=== PATIENT | male | born 1955 | race Hispanic/Latino ===

== ENCOUNTER 2016-11-10 06:35 | Day surgery (SDC) | payer OTHER ==
--- NOTE | 2016-11-10 07:21 | Anesthesia Day of Surgery ---
Anesthesia Day of Surgery - Day of Surgery Patient Examined: Yes Patient H&P Reviewed: Yes Patient is NPO: Yes Beta Blockers: Yes
--- NOTE | 2016-11-10 07:23 | Anesthesia Consultation ---
Anesthesia Consult and Med Hx Date of service: 11/10/16 - Airway Anesthetic Teeth Evaluation: Good ROM Head & Neck: Adequate Mental/Hyoid Distance: Adequate Mallampati Class: Class I Intubation Access Assessment: Good - Pulmonary Exam CTA: Yes - Cardiac Exam Cardiac Exam: RRR - Pre-Operative Health Status ASA Pre-Surgery Classification: ASA3 Proposed Anesthetic Plan: MAC - Pulmonary Hx Smoking: Yes (smoked today) Hx Asthma: No COPD: No Hx Pneumonia: No - Cardiovascular System Hx Hypertension: Yes (took coreg yesterday and lisinipril this morning) Hx Coronary Artery Disease: Yes (CABG 2011) Hx Heart Attack/AMI: Yes - Central Nervous System CVA: Yes (stroke X1 week ago) Hx Psychiatric Problems: No - Endocrine Hx End Stage Renal Disease: No - Other Systems Hx Obesity: Yes
[2016-11-10] MEDS ORDERED: DIPRIVAN 10 MG/ML IV ONE ×2 (07:50)
[2016-11-10] MEDS ORDERED: WATER FOR IRRIG STERILE IR ONE (07:51)
[2016-11-10] MEDS ORDERED: WATER FOR IRRIG STERILE ONE (07:51)
[2016-11-10] MEDS ORDERED: AMIDATE IV ONE (07:57)
[2016-11-10] MEDS ORDERED: NACL 0.9% 1000 ML 1,000 ML IV SCH (08:00)
[2016-11-10] MEDS ORDERED: XYLOCAINE MPF 2% ONE (08:00)
--- NOTE | 2016-11-10 08:28 | Post Anesthesia Evaluation ---
- Post Anesthesia Evaluation Patient Participated: Yes Airway Patent: Yes Stable Respiratory Function: Yes Nausea/Vomiting: No Temp > 96.8F: Yes Pain Manageable: Yes Adequeate Hydration: Yes Anesthesia Complications: No Block Receding Appropriately: Not Applicable Patient on Ventilator: No
--- NOTE | 2016-11-10 08:36 | Short Stay Summary ---
Short Stay Documentation - Allergies and Medications Current Medications: Allergies No Known Allergies Allergy (Verified 07/13/14 00:45) Home Medications Medication Instructions Recorded Confirmed Last Taken Type Aspirin [Aspirin BABY CHEW TAB] 81 mg PO DAILY 07/13/14 07/19/14 11/09/16 History Atorvastatin [Lipitor] 40 mg PO QHS 07/13/14 07/19/14 11/09/16 History Carvedilol [Coreg] 12.5 mg PO BID 07/13/14 07/19/14 11/09/16 History Lisinopril [Zestril TAB] 5 mg PO DAILY 07/13/14 07/19/14 11/10/16 05:30 History Niacin ER [Niaspan ER] 500 mg PO BID 07/13/14 07/19/14 10/27/16 History Warfarin [Coumadin] 7.5 mg PO DAILY@1700 #10 tablet 07/18/14 07/19/14 11/07/16 Rx Active Medications Sodium Chloride (Nacl 0.9% 1000 Ml) 1,000 mls @ 50 mls/hr IV DIRECT ARELY Last Admin: 11/10/16 07:40 Dose: 50 mls/hr - Brief post op/procedure progress note Date of procedure: 11/10/16 Pre-op diagnosis: Colon cancer screening Post-op diagnosis: same (1. Colon polyp 2. Anal papiilae 3. Diverticulosis 3. Internal hemorrhoids) Procedure: Colonoscopy with snare polypectomy Anesthesia: MAC Findings: as above Surgeon: EUGENIO MAY Estimated blood loss: none Pathology: list (Cecal polyp) Condition: stable - Disposition Condition at discharge: Stable Disposition: DC-[id number] TO HOME OR SELFCARE Short Stay Discharge Plan Activity: no restrictions Weight Bearing Status: Full Weight Bearing Diet: regular, low salt
[2016-11-10 08:57] VITALS: BP 132/78
[2016-11-10] MEDS ORDERED: NACL 0.9% 1000 ML 1,000 ML ONE (10:07)
== END 2016-11-10 09:07 | disposition home or self-care (01) ==
LOC: GIO 06:35
PROVIDERS: ATTEND Internal Medicine Gastroenterology
DX: Z12.11 Encounter for screening for malignant neoplasm of colon (principal); D12.0 Benign neoplasm of cecum; K64.8 Other hemorrhoids; K62.89 Other specified diseases of anus and rectum; K57.30 Diverticulosis of large intestine without perforation or abscess without bleeding; M19.90 Unspecified osteoarthritis, unspecified site; I10 Essential (primary) hypertension; I25.10 Atherosclerotic heart disease of native coronary artery without angina pectoris; F17.210 Nicotine dependence, cigarettes, uncomplicated; E66.9 Obesity, unspecified; Z68.35 Body mass index [BMI] 35.0-35.9, adult; Z72.89 Other problems related to lifestyle; Z79.82 Long term (current) use of aspirin; Z79.899 Other long term (current) drug therapy; Z88.5 Allergy status to narcotic agent; Z86.73 Personal history of transient ischemic attack (TIA), and cerebral infarction without residual deficits; Z95.1 Presence of aortocoronary bypass graft; Z98.890 Other specified postprocedural states
CPT/HCPCS: 45385; 88305; J2704; J7030

== ENCOUNTER 2017-08-29 12:58 | Outpatient (CLI) | payer OTHER ==
--- NOTE | 2017-08-29 15:17 | XRay Report ---
ROUTINE CHEST, TWO VIEWS: HISTORY: COPD with acute exacerbation. There is mild hyperinflation. There is an ill-defined 4 cm opacity in the right midlung. I cannot exclude a mass. Further evaluation with CT chest with contrast is recommended. The remainder of the lungs are clear. No pleural effusion or pneumothorax. Normal heart size and pulmonary vascularity. Previous CABG changes are noted. IMPRESSION: Mild COPD. Right lung opacity as described. A mass cannot be excluded. Further evaluation with CT chest with contrast is recommended.
== END 2017-08-29 12:59 | disposition home or self-care (01) ==
LOC: XRAY 12:58
PROVIDERS: ATTEND Internal Medicine
DX: J44.1 Chronic obstructive pulmonary disease with (acute) exacerbation (principal); J98.11 Atelectasis; Z95.1 Presence of aortocoronary bypass graft
CPT/HCPCS: 71046

== ENCOUNTER 2017-11-07 09:56 | Outpatient (CLI) | payer OTHER ==
[2017-11-07 10:29] LABS: Blood Urea Nitrogen 12 mg/dL (9-20)
--- NOTE | 2017-11-08 09:44 | Cat Scan Report ---
CT CHEST WITH CONTRAST: HISTORY: Right lung mass. COMPARISON: AP chest dated 08/29/17. TECHNIQUE: Helical CT in 1.25mm intervals following IV contrast. Sagittal and coronal reformatted images. FINDINGS: Thyroid gland: Normal. Tracheobronchial tree: Normal. Esophagus: Normal. Heart: Normal size. Moderate three-vessel coronary artery calcifications are identified. Previous CABG changes are suggested. Pericardium: Normal. Mediastinum: There are multiple suspicious and mildly enlarged right hilar and mediastinal lymph nodes. There are 3 or 4 lymph nodes at the right hilum measuring up to 2.6 cm. Mildly enlarged and suspicious subcarinal and precarinal lymph nodes are also identified. The aorta is mildly ectatic with scattered plaques but intact. Lung Diaz: A 4.0 x 4.1 cm mass is identified in the anterior-lateral right lower lobe. The remainder of the lungs are clear. No significant parenchymal lung disease is detected. Pleural Spaces: Normal. Musculoskeletal: Mild thoracic spondylosis. No fracture or suspicious bony lesion is identified. IMPRESSION: 4 cm right lower lobe mass suspicious for primary lung neoplasm. This should be accessible for CT-guided biopsy if needed. Multiple mildly enlarged and suspicious mediastinal lymph nodes in the right hilar chain, subcarinal chain and precarinal chain.
== END 2017-11-07 09:57 | disposition home or self-care (01) ==
LOC: CT 09:56
PROVIDERS: ATTEND Internal Medicine
DX: J44.9 Chronic obstructive pulmonary disease, unspecified (principal); R91.8 Other nonspecific abnormal finding of lung field; I25.10 Atherosclerotic heart disease of native coronary artery without angina pectoris; M47.894 Other spondylosis, thoracic region; E66.9 Obesity, unspecified; Z95.1 Presence of aortocoronary bypass graft
CPT/HCPCS: 36415; 71260; 82565; 84520; Q9967

== ENCOUNTER 2017-11-27 07:48 | Day surgery (SDC) | payer OTHER ==
[2017-11-27] MEDS ORDERED: SUBLIMAZE IV NR (08:30)
[2017-11-27] MEDS ORDERED: VERSED IV NR (08:30)
[2017-11-27 10:34] LABS: Basophils # (Auto) 0.1 K/mm3 (0.0-0.1); Eosinophils # (Auto) 0.2 K/mm3 (0.0-0.4); Eosinophils % (Auto) 2.2 % (0.0-4.3); Hemoglobin 13.9 gm/dl (11.8-15.2); Lymphocytes # (Auto) 1.4 K/mm3 (1.2-5.4); Lymphocytes % (Auto) 18.5 % (13.4-35.0); Mean Corpuscular HGB Conc 35 % (32-34); Mean Corpuscular Hemoglobin 32 pg (28-32); Mean Corpuscular Volume 93 fl (84-94); Monocytes # (Auto) 0.8 K/mm3 (0.0-0.8); Monocytes % (Auto) 10.7 % (0.0-7.3); Platelet Count 238 K/mm3 (140-440); Red Blood Count 4.33 M/mm3 (3.65-5.03); Red Cell Distribution Width 14.6 % (13.2-15.2)
[2017-11-27 10:48] LABS: INR 1.51 (0.87-1.13)
[2017-11-27 10:49] LABS: Partial Thromboplastin Time 31.6 Sec. (24.2-36.6)
--- NOTE | 2017-11-27 12:43 | Cat Scan Report ---
CT BIOPSY LUNG RIGHT HISTORY: Right lower lung mass. DESCRIPTION OF PROCEDURE: Informed consent was obtained. Sterile technique was utilized. Conscious sedation was accomplished with Versed and fentanyl. The patient was sedated for 15 minutes. Intraobserver time of 20 minutes. Independent cardiorespiratory monitoring by RN. Using CT guidance, a 19-gauge introducer needle was advanced to the leading edge of an approximate 4.5 cm mass in the lateral right lower lobe. 2 separate 2.2 cm 20-gauge core biopsies were obtained for pathology. The samples were deemed adequate by the pathologist who was present in the CT suite. Followup scan demonstrates a tiny right lateral pneumothorax estimated at 1-2%. The patient was asymptomatic. A followup chest x-ray will be ordered. IMPRESSION: Successful CT-guided biopsy of a 4.5 cm right lower lobe mass.
[2017-11-27 15:13] VITALS: BP 123/74
--- NOTE | 2017-11-27 15:49 | XRay Report ---
AP CHEST: HISTORY: Right lung mass, recent CT-guided right lung biopsy Recent CT-guided right lung biopsy was performed. No pneumothorax is visualized. The right lower lobe mass is again noted. The remainder of the lungs are clear. Heart size is within normal limits. IMPRESSION: No pneumothorax is visualized.
== END 2017-11-27 15:40 | disposition home or self-care (01) ==
LOC: CATHLABREC 07:48
PROVIDERS: ATTEND Internal Medicine
DX: C34.31 Malignant neoplasm of lower lobe, right bronchus or lung (principal); Z79.01 Long term (current) use of anticoagulants
CPT/HCPCS: 32405; 36415; 71045; 77012; 81235; 85025; 85610; 85730; 88271; 88305; 88333; 88341; 88342; J2250; J3010; 88173